=== PATIENT | female | born 1960 | race Hispanic/Latino ===

== ENCOUNTER → 2025-05-15 | Outpatient (CLI) | payer MEDICARE ==
--- NOTE | 2025-05-15 14:24 | HMCIMG ---
CLINICAL INFORMATION Shortness of breath COMPARISON None. TECHNIQUE 2 view chest. FINDINGS Lines and tubes: None Lungs: Pulmonary vascular congestion with increased interstitial opacities. Pleura: Unremarkable. No effusion or pneumothorax. Cardiomediastinal Silhouette: Unremarkable. Bones: Normal for age. Soft Tissues: Normal. IMPRESSION Pulmonary vascular congestion with increased interstitial opacities, which may represent pulmonary edema or atypical infection. /[place]
== END | disposition home or self-care (01) ==
LOC: RAH 12:58
PROVIDERS: ATTEND Family Medicine
DX: J84.89 Other specified interstitial pulmonary diseases (principal); R06.02 Shortness of breath
CPT/HCPCS: 71046

== ENCOUNTER → 2025-07-03 | Outpatient (CLI) | payer MEDICARE ==
--- NOTE | 2025-07-04 16:08 | HMCIMG ---
CHEST 1VW REASON: SHORTNESS OF BREATH COMPARISON: Prior study from 05/15/2025 is available. FINDINGS: Single view of the chest was obtained. Lungs are clear. Heart size is normal. There is no pulmonary vascular congestion. Mediastinum and bony thorax appear unremarkable. There are surgical clips in the right upper quadrant from prior cholecystectomy. The study is unchanged from prior study IMPRESSION: 1 unchanged from prior study with no acute cardiothoracic process..
== END | disposition home or self-care (01) ==
LOC: RAH 16:13
PROVIDERS: ATTEND Family Medicine
DX: R06.02 Shortness of breath (principal); Z90.49 Acquired absence of other specified parts of digestive tract
CPT/HCPCS: 71045